=== PATIENT | female | born 1950 | race Caucasian/White ===

== ENCOUNTER 2021-06-04 18:42 | Emergency (ER) | payer MEDICARE ==
[2021-06-04] MEDS ORDERED: Dexamethasone 4 MG TAB ONE (19:08)
[2021-06-04] MEDS ORDERED: Benzonatate 100 MG CAP ONE (19:08)
[2021-06-04] MEDS ORDERED: Sulfameth/Trimethoprim DS 800-160mg TAB ONE (19:08)
== END 2021-06-04 19:10 | disposition home or self-care (01) ==
LOC: BURERS 18:42
DX: J01.90 Acute sinusitis, unspecified (principal); I10 Essential (primary) hypertension; E03.9 Hypothyroidism, unspecified; Z87.891 Personal history of nicotine dependence; Z79.899 Other long term (current) drug therapy
CPT/HCPCS: 99283; J8540

== ENCOUNTER 2023-05-01 06:36 | Emergency (ER) | payer MEDICARE, BC ==
[2023-05-01] MEDS ORDERED: Famotidine 20 MG TAB ONE (07:23)
[2023-05-01] MEDS ORDERED: predniSONE 20 MG TAB ONE (07:23)
== END 2023-05-01 07:26 | disposition home or self-care (01) ==
LOC: BURERS 06:36
DX: T78.40XA Allergy, unspecified, initial encounter (principal); I10 Essential (primary) hypertension; E03.9 Hypothyroidism, unspecified; Z79.899 Other long term (current) drug therapy; Z87.891 Personal history of nicotine dependence
CPT/HCPCS: 99282; J7512